=== PATIENT | female | born 1950 | race Caucasian/White ===

== ENCOUNTER 2017-06-09 12:42 | Inpatient (IN) | payer MEDICARE, MEDICAID ==
[2017-06-09 14:03] LABS: #Eosinphils 0.4 thou/uL (0.0-0.7); #Lymphocytes 1.6 thou/uL (1.20-3.40); #Monocytes 0.7 thou/uL (0.11-0.59); #Neutrophils 6.3 thou/uL (1.40-6.50); %Basophils 0.5 % (0.0-1.0); %Eosinophils 4.5 % (0.0-10.0); %Monocytes 7.9 % (0.0-10.0); %Neutrophils 69.3 % (42.0-75.0); Hemoglobin 13.2 g/dL (12.0-16.0); Mean Corpuscular HGB CONC 33.1 g/dL (32.0-36.0); Mean Corpuscular Hemoglobin 32.6 pg (27.0-31.0); Mean Corpuscular Volume 98.3 fl (81.0-99.0); Mean Platelet Volume 6.9 fL (7.4-10.4); Platelet Count 324 thou/uL (130-400); Red Blood Cell (RBC) Count 4.05 mill/uL (4.20-5.40)
[2017-06-09 14:28] LABS: ALT (SGPT) 7 U/L (8-55); AST (SGOT) 14 U/L (5-34); Albumin 3.8 g/dL (3.4-4.8); Alkaline Phosphatase 133 U/L (40-150); Anion Gap 12 mmol/L (10-20); BUN (Urea Nitrogen) 39 mg/dL (9.8-20.1); Bilirubin, Total 0.2 mg/dL (0.2-1.2); Calc. Creatinine Clearance 0 mL/min (70-130); Calcium 9.4 mg/dL (7.8-10.44); Carbon Dioxide 28 mmol/L (23-31); Chloride 101 mmol/L (98-107); Estimated GFR-MDRD 37; Globulin 3.8 g/dL (2.4-3.5); Glucose 85 mg/dL (80-115); Potassium 5.2 mmol/L (3.5-5.1); Protein, Total 7.6 g/dL (6.0-8.3); Sodium 136 mmol/L (136-145)
--- NOTE | 2017-06-09 14:40 | RAD ---
THREE VIEWS RIGHT FOOT: HISTORY: Cellulitis. COMPARISON: None. FINDINGS: There is diffuse bone demineralization. Osteomyelitis in the mid foot cannot be excluded. There is questionable irregularity involving the base of the 5th metatarsal, best appreciated on the lateral p rojection. There is no evidence of cortical destruction or periosteal reaction. There is extensive soft tissue swelling. There appears to be subcutaneous emphysema along the medial and lateral aspect of the ankle. IMPRESSION: 1. Soft tissue swelling and subcutaneous emphysema. Correlate for cellulitis. 2. Diffuse bone demineralization. Components of osteomyelitis cannot be excluded. Consider MRI. POS: [facility]
--- NOTE | 2017-06-09 16:27 | PDOC.FPRHP ---
- History of Present Illness Chief Complaint: R foot pain/swelling History of Present Illness: This is a 67 y/o F [place] resident with a PMHx of cerebral palsy and a-fib who presents for R foot pain and swelling. The patient reports that about 2 weeks ago her foot got caught in the lift and it was injured at that time. Since then she has had a lot of pain in that foot. She can't really see her foot very well , so she is unsure if it was bruised or swollen, but it felt swollen at the time. She says that she thought it was getting better, but a nurse told her that she was concerned about it and had the doctor look at it who sent her to the ED. She denies any fevers/chills. She does feel like it itches a lot. ED Course: Was evaluated in the ED and given 2L NS and 1g Vancomycin - Allergies/Adverse Reactions Allergies Allergy/AdvReac Type Severity Reaction Status Date / Time No Known Drug Allergies Allergy Verified 06/09/17 21:09 - Home Medications Medication Instructions Recorded Confirmed Type Albuterol Sulfate [Albuterol 0.63 mg NEB Q4HR PRN 06/09/17 06/09/17 History Sulfate Neb] Baclofen 10 mg PO Q6H 06/09/17 06/09/17 History DULoxetine [Cymbalta] 60 mg PO HS 06/09/17 06/09/17 History Diltiazem HCl [Cartia XT] 2 tab PO DAILY 06/09/17 06/09/17 History Furosemide 40 mg PO DAILY 06/09/17 06/09/17 History Lisinopril 20 mg PO DAILY 06/09/17 06/09/17 History Nut.sup,Spec.frm,l-Fr,Iron/Fos 1,000 ml PO TID 06/09/17 06/09/17 History [TwoCal HN Liquid] Ondansetron [Zofran ODT] 4 mg PO Q4HR PRN 06/09/17 06/09/17 History Pantoprazole Sodium [Protonix] 20 mg PO DAILY 06/09/17 06/09/17 History Sennosides/Docusate Sodium [Senna 1 each PO BID 06/09/17 06/09/17 History Plus Tablet] Warfarin Sodium [Coumadin] 2.5 mg PO DAILY 06/09/17 06/09/17 History busPIRone HCl [Buspar] 5 mg PO BID 06/09/17 06/09/17 History busPIRone HCl [Buspar] 10 mg PO HS 06/09/17 06/09/17 History oxyCODONE HCl/Acetaminophen 1 tab PO Q6H PRN 06/09/17 06/09/17 History [Oxycodone-Acetaminophen 10-325] - History PMHx: 1. Cerebral Palsy 2. a-fib 3. MDD 4. Anxiety 5. GERD PSHx: 1. Cyst removal FHx: Brother - [place] Sister - asthma Social: Lives in [facility], Smokes 4-5 cigarettes/day for the past 3 years, and smoked 1/2 ppd for the 15 years prior to that. Denies EtOH or drug use. - Review of Systems General: denies: fever/chills, weight/appetite/sleep changes Eyes: denies: eye pain, vision changes ENT: reports: rhinorrhea. denies: nasal congestion Respiratory: denies: cough, congestion, shortness of breath Cardiovascular: reports: edema. denies: chest pain, palpitation Gastrointestinal: denies: nausea, vomiting, diarrhea, constipation, abdominal pain Genitourinary: denies: dysuria, polyuria Skin: denies: rashes, lesions Musculoskeletal: reports: pain, tenderness Neurological: denies: numbness, syncope Psychological: denies: anxiety, depression - Vital signs BP: 127/61 HR: 59 RR: 18 Tmax: 98.6 Pox: 100% on RA Wt: 61.23kg - Physical Exam Constitutional: NAD, awake, alert and oriented HEENT: normocephalic and atraumatic, PERRLA, EOMI, conjunctiva clear, grossly normal vision, normal nasal mucosa, MMM, other (upper dentures in place) Neck: supple, trachea midline, no LAD Heart: RRR, normal S1/S2, no murmurs/rubs/gallops, pulses present Lungs: CTAB, no respiratory distress, good air movement, no rales/rhonchi, no wheezing Abdomen: soft, non-tender, bowel sounds present, no masses/distention Musculoskeletal: other (abnormal structure consistent with cerebral palsy, upper extremities held in flexion) Neurological: CN II-XII intact, normal sensation -Skin: 2cm ulcer on the R medial malleolus with a large surrounding area of erythema and warmth. Psychiatric: normal mood and affect, intact recent and remote memory FMR H&P: Results - Labs Result Diagrams: 06/10/17 03:27 06/10/17 03:27 Lab results: WBC 9.0 thou/uL (4.8-10.8) 06/09/17 13:59 Hgb 13.2 g/dL (12.0-16.0) 06/09/17 13:59 Hct 39.9 % (36.0-47.0) 06/09/17 13:59 MCV 98.3 fl (81.0-99.0) 06/09/17 13:59 Plt Count 324 thou/uL (130-400) 06/09/17 13:59 Neutrophils % 69.3 % (42.0-75.0) 06/09/17 13:59 ESR Westergren 39 mm/hr (Less than 30) 06/09/17 13:59 Sodium 136 mmol/L (136-145) 06/09/17 13:59 Potassium 5.2 mmol/L (3.5-5.1) H 06/09/17 13:59 Chloride 101 mmol/L (98-107) 06/09/17 13:59 Carbon Dioxide 28 mmol/L (23-31) 06/09/17 13:59 BUN 39 mg/dL (9.8-20.1) H 06/09/17 13:59 Creatinine 1.40 mg/dL (0.6-1.1) H 06/09/17 13:59 Glucose 85 mg/dL (80-115) 06/09/17 13:59 Calcium 9.4 mg/dL (7.8-10.44) 06/09/17 13:59 Total Bilirubin 0.2 mg/dL (0.2-1.2) 06/09/17 13:59 AST 14 U/L (5-34) 06/09/17 13:59 ALT 7 U/L (8-55) L 06/09/17 13:59 Alkaline Phosphatase 133 U/L (40-150) 06/09/17 13:59 C-Reactive Protein 0.53 mg/dL (= or < 0.5) H 06/09/17 13:59 Serum Total Protein 7.6 g/dL (6.0-8.3) 06/09/17 13:59 Albumin 3.8 g/dL (3.4-4.8) 06/09/17 13:59 FMR H&P: A/P - Problem List (1) Cellulitis Current Visit: Yes Status: Acute Code(s): L03.90 - CELLULITIS, UNSPECIFIED Qualifiers: Site of cellulitis: extremity Site of cellulitis of extremity: lower extremity Laterality: right Qualified Code(s): L03.115 - Cellulitis of right lower limb (2) Wound infection Current Visit: Yes Status: Acute Code(s): T14.8XXA - OTHER INJURY OF UNSPECIFIED BODY REGION, INITIAL ENCOUNTER; L08.9 - LOCAL INFECTION OF THE SKIN AND SUBCUTANEOUS TISSUE, UNSP (3) Hyperkalemia Current Visit: Yes Status: Resolved Code(s): E87.5 - HYPERKALEMIA (4) BATSHEVA (acute kidney injury) Current Visit: Yes Status: Acute Code(s): N17.9 - ACUTE KIDNEY FAILURE, UNSPECIFIED (5) Atrial fibrillation Current Visit: Yes Status: Acute Code(s): I48.91 - UNSPECIFIED ATRIAL FIBRILLATION Qualifiers: Atrial fibrillation type: unspecified Qualified Code(s): I48.91 - Unspecified atrial fibrillation (6) Depression Current Visit: Yes Status: Acute Code(s): F32.9 - MAJOR DEPRESSIVE DISORDER , SINGLE EPISODE, UNSPECIFIED Qualifiers: Depression Type: major depressive disorder Major depression recurrence: recurrent Active/Remission status: remission status unspecified Qualified Code(s): F33.9 - Major depressive disorder, recurrent, unspecified (7) GERD (gastroesophageal reflux disease) Current Visit: Yes Status: Acute Code(s): K21.9 - GASTRO-ESOPHAGEAL REFLUX DISEASE WITHOUT ESOPHAGITIS Qualifiers: Esophagitis presence: without esophagitis Qualified Code(s): K21.9 - Gastro -esophageal reflux disease without esophagitis (8) HTN (hypertension) Current Visit: Yes Status: Acute Code(s): I10 - ESSENTIAL (PRIMARY) HYPERTENSION Qualifiers: Hypertension type: essential hypertension Qualified Code(s): I10 - Essential (primary) hypertension (9) Anxiety Current Visit: Yes Status: Acute Code(s): F41.9 - ANXIETY DISORDER, UNSPECIFIED - Plan Suspected wound infection with overlying cellulitis The patient had a wound 2 weeks ago that did not heal well, likely 2/2 location and possible hematoma formation from being on coumadin. X-ray could not rule out osteo. -Vanc day 1, Zosyn day 1 -Check BCx and wound cultures, although they may be low yield as abx were given before cultures were checked -Ortho consulted, appreciate recs -MRI to rule out osteo -Hold coumadin until ortho gives recs regarding surgery -Wound care consulted Acute kidney injury vs CKD s/p 2L NS bolus by ED -NS @ 100 mL/hr -Recheck Cr in AM -Urine Na, Urine Cr to check FeNa -Hold lisinopril Hyperkalemia Mild -Monitor with BMP -Continue home lasix Atrial fibrillation -Continue Diltiazem -Hold Coumadin until ortho gives recs regarding surgery HTN -Hold lisinopril -Continue lasix Anxiety -Continue home meds Depression -Continue home meds Code status: full Diet: Heart Healthy Symptomatic meds will be provided Disposition/LOS: Admit to Medical, Length of stay likely 2 days FMR H&P: Upper Level - Pertinent history 65 year old white female with a past medical history of cerebral palsy, chronic UTI, atrial fibrillation, and HTN presents for ulcer on right ankle. It has been present for "a couple of weeks" after [place] got [place] She saw her PCP in [place] for it - reports x-ray was normal there. She denies pain but reports it is tender to touch. She denies surrounding erythema and purulent drainage but states it does bleed at times. Denies fever, chills, chest pain, dyspnea, abdominal pain, nausea, vomiting, diarrhea, dysuria, and polyuria. In the ER she was seen by ROSANA Lal and given 1 g vancomycin and 2L NS. MRI was ordered and orthopedics was consulted. - Pertinent findings Vitals: Temp 98.6 HR 62 RR 18 BP 127/61 O2 sat 95% on room air wt 61 kg Physical Exam General: NAD; awake, alert, and oriented x 4 Eyes: PERRLA, EOMI, nonicteric ENT: MMM, mucous membranes moist, no exudates CV: Regular rate and rhythm. No murmurs, rubs, or gallops. Pulses full and equal and all 4 extremities Resp: CTA-B, no WRR. Nonlabored Abd: NT, ND, no guarding/rebound Ext: No edema. Right arm held in flexion Skin: 1 cm unstageable ulcer on right medial malleolus. No surrounding erythema or drainage Neuro: No focal deficits. Right arm flexion Psych: Mood and affect appropriate. Judgement and insight intact. snf and short term recall normal. - Plan Date/Time: 06/09/175 I, Rajan Bonilla DO, have evaluated this patient and agree with findings/plan as outlined by internet project manager resident. Pertinent changes/additions are listed here. I personally evaluated the patient at approximately 1605. 67 year old white female p/w: 1) Suspected wound infection - Admit to medical floor. X-ray raised some concern for osteomyelitis. Will give iv antibiotics, check blood culture, and wound culture. Cultures may be low yield as antibiotics have already been given. Ortho consulted by ER. Consult wound care. Will hold warfarin for now as patient will need wound care and may need surgery. Will need meds for pain 2) Acute kidney injury vs CKD - Has been given iv fluids. Will trend creatinine 3) Hyperkalemia - Recheck BMP now that she has had fluids. Hold lisinopril. Resume home Lasix tomorrow 4) HTN - Hold lisinopril until potassium rechecked. Continue Lasix 5) Anxiety - Continue home meds 6) Atrial fibrillation - Continue Cardizem. Will hold warfarin as patient may need surgery and will certainly need wound care 7) Depression - Continue home meds Attending Addendum - Attending Addendum Date/Time: 06/10/17 1625 I personally evaluated the patient and discussed the management with Dr. Perez on 06/09/17. I agree with the History, Examination, Assessment and Plan documented above with any addition or exceptions noted below. Patient with cellulitis and open wound. Will workup for osteomyelitis.
[2017-06-09] MEDS ORDERED: Albuterol Sulfate 1.25 MG/3 ML NEB NEB PRN (19:38)
[2017-06-09] MEDS ORDERED: Ondansetron ODT 4 MG TAB PO PRN (19:38)
[2017-06-09] MEDS ORDERED: Ondansetron ODT 4 MG TAB SL PRN (19:41)
[2017-06-09] MEDS ORDERED: Ondansetron HCl/PF 4 MG/2 ML Vial IVP PRN (19:41)
[2017-06-09] MEDS ORDERED: Acetaminophen 325 MG TAB PO PRN (19:41)
[2017-06-09 19:55] LABS: PTT 40.1 SEC (22.9-36.1)
[2017-06-09] MEDS: Baclofen 10 MG TAB PO SCH (20:42)
[2017-06-09] MEDS: DULoxetine 60 MG CAP PO SCH (20:42)
[2017-06-09] MEDS: Senokot S 8.6-50 MG TAB PO SCH (20:43)
[2017-06-09] MEDS: HYDROcodone/Acetaminophen 10/325 mg Tablet PO PRN (20:43)
[2017-06-09] MEDS: busPIRone HCl 5 MG TAB PO SCH (20:43)
[2017-06-09] MEDS: Piperacillin/Tazobactam 3.375 GM in Sodium Chloride 0.9% 100 ML IVPB SCH (20:43)
[2017-06-09] MEDS: Sodium Chloride 0.9% 1,000 ML IV SCH (20:44)
[2017-06-10] MEDS: HYDROcodone/Acetaminophen 10/325 mg Tablet PO PRN ×5 (00:39→20:51)
[2017-06-10 02:13] LABS: Creatinine, Urine 26.54 mg/dL (47-110)
[2017-06-10] MEDS: Baclofen 10 MG TAB PO SCH ×4 (02:18→20:50)
[2017-06-10] MEDS: Piperacillin/Tazobactam 3.375 GM in Sodium Chloride 0.9% 100 ML IVPB SCH ×4 (02:35→21:28)
[2017-06-10 04:35] LABS: Prothrombin Time 23.6 SEC (12.0-14.7)
[2017-06-10 04:40] LABS: #Eosinphils 0.4 thou/uL (0.0-0.7); #Lymphocytes 2.1 thou/uL (1.20-3.40); #Monocytes 0.6 thou/uL (0.11-0.59); #Neutrophils 5.6 thou/uL (1.40-6.50); %Basophils 0.1 % (0.0-1.0); %Eosinophils 4.8 % (0.0-10.0); %Lymphocytes 23.6 % (21.0-51.0); %Monocytes 6.8 % (0.0-10.0); %Neutrophils 64.7 % (42.0-75.0); Hemoglobin 10.5 g/dL (12.0-16.0); Mean Corpuscular HGB CONC 33.7 g/dL (32.0-36.0); Mean Corpuscular Hemoglobin 32.8 pg (27.0-31.0); Mean Corpuscular Volume 97.5 fl (81.0-99.0); Mean Platelet Volume 6.7 fL (7.4-10.4); Platelet Count 273 thou/uL (130-400); RBC Distribution Width 11.9 % (11.5-14.5); Red Blood Cell (RBC) Count 3.19 mill/uL (4.20-5.40); White Blood Cell (WBC) Count 8.7 thou/uL (4.8-10.8)
[2017-06-10 04:41] LABS: Anion Gap 11 mmol/L (10-20); BUN (Urea Nitrogen) 31 mg/dL (9.8-20.1); Calc. Creatinine Clearance 53 mL/min (70-130); Calcium 8.4 mg/dL (7.8-10.44); Carbon Dioxide 24 mmol/L (23-31); Chloride 110 mmol/L (98-107); Estimated GFR-MDRD 51; Glucose 83 mg/dL (80-115); Potassium 4.5 mmol/L (3.5-5.1); Sodium 140 mmol/L (136-145)
--- NOTE | 2017-06-10 08:11 | PDOC.FM ---
- Subjective Subjective: The patient reports that she has had continued pain in her R foot, but that the pain medicine has helped some. She denies any other issues with N/V, F/C, SOB. - Objective MAR Reviewed: Yes Vital Signs & Weight: Vital Signs (12 hours) Temp Pulse Resp BP Pulse Ox 06/10/17 04:00 98.5 F 62 20 115/69 98 06/10/17 00:00 98.2 F 65 20 98/62 97 Weight Weight 67.313 kg I&O: 06/09/17 06/10/17 06/11/17 06:59 06:59 06:59 Intake Total 1000 Balance 1000 Result Diagrams: 06/10/17 03:27 06/10/17 03:27 <Samantha Perez - Last Filed: 06/10/17 10:49> - Objective Vital Signs & Weight: Vital Signs (12 hours) Temp Pulse Resp BP BP Pulse Ox 06/10/17 09:14 98.7 F 74 16 135/74 98 06/10/17 09:01 62 149/82 H 06/10/17 08:00 98.3 F 75 16 98 06/10/17 04:00 98.5 F 62 20 115/69 98 06/10/17 00:00 98.2 F 65 20 98/62 97 Weight Admit Weight 67.313 kg Weight 67.313 kg I&O: 06/09/17 06/10/17 06/11/17 06:59 06:59 06:59 Intake Total 1000 Balance 1000 Result Diagrams: 06/10/17 03:27 06/10/17 03:27 <Monty Lewis - Last Filed: 06/10/17 11:18> Phys Exam - Physical Examination Constitutional: NAD HEENT: moist MMs Respiratory: no wheezing, no rales, no rhonchi, clear to auscultation bilateral Cardiovascular: RRR, no significant murmur, no rub Gastrointestinal: soft, non-tender, no distention, positive bowel sounds Musculoskeletal: no edema, pulses present Psychiatric: normal affect, A&O x 3 Skin: normal turgor Deviation from normal: 2cm ulcer on the R medial malleolus with surrounding erythema & warmth <Samantha Perez - Last Filed: 06/10/17 10:49> Dx/Plan (1) Cellulitis Code(s): L03.90 - CELLULITIS, UNSPECIFIED Status: Acute QualifierTitle: Site of cellulitis: extremity Site of cellulitis of extremity: lower extremity Laterality: right Qualified Code(s): L03.115 - Cellulitis of right lower limb (2) Wound infection Code(s): T14.8XXA - OTHER INJURY OF UNSPECIFIED BODY REGION, INITIAL ENCOUNTER; L08.9 - LOCAL INFECTION OF THE SKIN AND SUBCUTANEOUS TISSUE, UNSP Status: Acute (3) Hyperkalemia Code(s): E87.5 - HYPERKALEMIA Status: Resolved (4) BATSHEVA (acute kidney injury) Code(s): N17.9 - ACUTE KIDNEY FAILURE, UNSPECIFIED Status: Acute (5) Atrial fibrillation Code(s): I48.91 - UNSPECIFIED ATRIAL FIBRILLATION Status: Acute QualifierTitle: Atrial fibrillation type: unspecified Qualified Code(s): I48.91 - Unspecified atrial fibrillation (6) Depression Code(s): F32.9 - MAJOR DEPRESSIVE DISORDER, SINGLE EPISODE, UNSPECIFIED Status : Acute QualifierTitle: Depression Type: major depressive disorder Major depression recurrence: recurrent Active/Remission status: remission status unspecified Qualified Code(s): F33.9 - Major depressive disorder, recurrent, unspecified (7) GERD (gastroesophageal reflux disease) Code(s): K21.9 - GASTRO-ESOPHAGEAL REFLUX DISEASE WITHOUT ESOPHAGITIS Status: Acute QualifierTitle: Esophagitis presence: without esophagitis Qualified Code( s): K21.9 - Gastro-esophageal reflux disease without esophagitis (8) HTN (hypertension) Code(s): I10 - ESSENTIAL (PRIMARY) HYPERTENSION Status: Acute QualifierTitle: Hypertension type: essential hypertension Qualified Code( s): I10 - Essential (primary) hypertension (9) Anxiety Code(s): F41.9 - ANXIETY DISORDER, UNSPECIFIED Status: Acute - Plan Plan: Suspected wound infection with overlying cellulitis The patient had a wound 2 weeks ago that did not heal well, likely 2/2 location and possible hematoma formation from being on coumadin. X-ray could not rule out osteo. -Vanc day 2, Zosyn day 2, added clindamycin -Check BCx and wound cultures, although they may be low yield as abx were given before cultures were checked -Ortho consulted, appreciate recs -MRI to rule out osteo -Hold coumadin until ortho gives recs regarding surgery -Wound care consulted Acute kidney injury vs CKD s/p 2L NS bolus by ED, unsure of patient's exact baseline -Creatinine is improved this AM to 1.06. -Hold lisinopril for now Hyperkalemia, resolved Was mildly elevated to 5.2, but has downtrended to normal. -Monitor with BMP -Continue home lasix Atrial fibrillation -Continue Diltiazem -Hold Coumadin until ortho gives recs regarding surgery HTN -Continue home lasix -Hold lisinopril for now due to BATSHEVA, BP has been WNL Anxiety -Continue home meds Depression -Continue home meds <Samantha Perez - Last Filed: 06/10/17 10:49> Attending Addendum - Attending Addendum Date/Time: 06/10/17 1117 I personally evaluated the patient and discussed the management with Dr. Perez. I agree with the History, Examination, Assessment and Plan documented above with any addition or exceptions noted below. We are adding Clindamycin to her regimen. <Monty Lewis - Last Filed: 06/10/17 11:18>
[2017-06-10] MEDS ORDERED: FLU VACC TS2017-18 (>65YR) 0.5 ML SYRINGE IM ONE (09:00)
[2017-06-10] MEDS: busPIRone HCl 5 MG TAB PO SCH ×3 (09:02→20:50)
[2017-06-10] MEDS: Senokot S 8.6-50 MG TAB PO SCH ×2 (09:02→21:28)
--- NOTE | 2017-06-10 12:19 | CON ---
DATE OF CONSULTATION: 06/10/2017 CHIEF COMPLAINT: Right foot swelling. HISTORY OF PRESENT ILLNESS: Ms. Cruz is a 67-year-old female, who has history of cerebral palsy. S he does not ambulate. She lives in a senior living. She reports that 2 weeks ago she got her right f oot caught in a lift as she was transporting. She had pain in the foot and swelling. She did not no alicia a wound at that time. Over the last several days, she has been having increasing swelling and w as noted to have erythema by her nurse. She was taken to the Emergency Department for evaluation. S he was found to have a hematoma of the posterior medial ankle with mild drainage and surrounding eryt carla suggestive of cellulitis. She was started on antibiotics last night. X-rays were obtained, jarek barrientos demonstrated diffuse osteopenia. Their report said osteomyelitis could not be ruled out. The patient is doing well this morning. She feels better, less pain, less swelling of the foot. PAST MEDICAL HISTORY: Cerebral palsy, AFib, anxiety, and GERD. PAST SURGICAL HISTORY: Cyst removal. PAST FAMILY MEDICAL HISTORY: [place] and asthma. SOCIAL HISTORY: The patient smokes several cigarettes a day. She denies alcohol or drug use. She l sophia in [facility]. PHYSICAL EXAMINATION: VITAL SIGNS: Temperature is 98.5, pulse is 62, respiratory rate 20, oxygen saturation 98%, blood pre ssure is 115/69. GENERAL: She is alert, lying supine, in no apparent distress, very thin. RESPIRATORY: Breathing comfortably. ABDOMEN: Soft, nontender, nondistended. MUSCULOSKELETAL: The patient's right foot has mild edema. There is no significant erythema. No inc reased warmth. Palpable dorsalis pedis pulse. She has a 3 x 3 cm area of swelling along the posteri or medial ankle. There is a 1 cm wound at the center of this with hematoma drainage. There is no pu rulence. Hematoma is thickened and coagulated. Minimally tender to palpation. IMAGES: X-rays of the foot demonstrate no acute fracture. No obvious evidence of a chronic infectio n suggestive of osteomyelitis. There is soft tissue swelling. IMPRESSION: A 67-year-old female with cerebral palsy, who is a nonambulator with a hematoma and drai nage from the ankle. PLAN: At this point, I think the patient can be treated with local wound care. The wound care nursi ng team has been consulted. Packing this wound would be appropriate to evacuate some of the hematoma . She will continue on antibiotics. MRI is pending to rule out underlying osteomyelitis or evidence of infection, although I think this is unlikely. We will continue to follow. If she develops worse josie infection, we could proceed with surgical drainage; however, for now, there is no indication for surgery.
[2017-06-10 12:38] VITALS: BMI 25.2
[2017-06-10] MEDS: Clindamycin/D5W 600 MG in Premix Bag 1 BAG IVPB SCH ×2 (13:54→22:47)
[2017-06-10] MEDS: Vancomycin HCl 750 MG in Sodium Chloride 0.9% 250 ML 250 ML IVPB SCH (14:02)
[2017-06-10] MEDS: Furosemide 40 MG TAB PO SCH (15:58)
--- NOTE | 2017-06-10 16:57 | MRI ---
MRI OF RIGHT FOOT PERFORMED WITHOUT CONTRAST ENHANCEMENT: 06/10/17 HISTORY: Evaluation for osteomyelitis. Patient has a history of hitting the foot approximately two weeks ago a nd development of cellulitis. This happened two weeks ago and then one week ago, patient reportedly h it the opposite side of the foot. The marrow signal change within the tibia, fibula and hindfoot region is normal. There is no evidence for osteomyelitis. Achilles tendon is normal in appearance. I do not see any signs of any tendinous abnormalities. There is a superficial T1 hypo and T2 hyperintense fluid collection which appears to represent fluid collection. It shows peripheral enhancement of the wall. It measures 3.8 cm in diameter and approxima tely 1.5 cm in width. This is compatible with a complex fluid collection. It could possibly be infect ed. No underlying deep extension. IMPRESSION: Fluid collection along the medial malleolus which could possibly be an infected superficial fluid col lection. Clinical correlation is recommended. No deep extension of this fluid collection and no evide nce of osteomyelitis. POS: [facility]
[2017-06-10] MEDS: DULoxetine 60 MG CAP PO SCH (21:28)
[2017-06-10] MEDS: Sodium Chloride 0.9% 1,000 ML IV SCH (21:48)
[2017-06-11] MEDS: Piperacillin/Tazobactam 3.375 GM in Sodium Chloride 0.9% 100 ML IVPB SCH ×4 (02:46→20:14)
[2017-06-11] MEDS: Baclofen 10 MG TAB PO SCH ×4 (02:46→20:14)
[2017-06-11] MEDS: HYDROcodone/Acetaminophen 10/325 mg Tablet PO PRN ×4 (02:51→20:12)
[2017-06-11 04:34] LABS: #Basophils 0.1 thou/uL (0.0-0.2); #Eosinphils 0.5 thou/uL (0.0-0.7); #Lymphocytes 1.5 thou/uL (1.20-3.40); #Monocytes 0.6 thou/uL (0.11-0.59); #Neutrophils 5.1 thou/uL (1.40-6.50); %Basophils 0.7 % (0.0-1.0); %Eosinophils 6.2 % (0.0-10.0); %Lymphocytes 19.8 % (21.0-51.0); %Monocytes 8.2 % (0.0-10.0); %Neutrophils 65.2 % (42.0-75.0); Mean Corpuscular HGB CONC 34.1 g/dL (32.0-36.0); Mean Corpuscular Volume 96.5 fl (81.0-99.0); Mean Platelet Volume 6.7 fL (7.4-10.4); Platelet Count 247 thou/uL (130-400); Red Blood Cell (RBC) Count 3.32 mill/uL (4.20-5.40); White Blood Cell (WBC) Count 7.7 thou/uL (4.8-10.8)
[2017-06-11 04:51] LABS: Anion Gap 12 mmol/L (10-20); BUN (Urea Nitrogen) 30 mg/dL (9.8-20.1); Calc. Creatinine Clearance 43 mL/min (70-130); Calcium 8.7 mg/dL (7.8-10.44); Carbon Dioxide 23 mmol/L (23-31); Chloride 110 mmol/L (98-107); Estimated GFR-MDRD 44; Glucose 92 mg/dL (80-115); Potassium 4.3 mmol/L (3.5-5.1); Sodium 141 mmol/L (136-145)
[2017-06-11] MEDS: Clindamycin/D5W 600 MG in Premix Bag 1 BAG IVPB SCH ×3 (06:02→21:46)
--- NOTE | 2017-06-11 06:33 | PDOC.FM ---
- Subjective Subjective: Patient states she had a good night. She is wondering when she will be able to go back to the snf. She denies chest pain, sob, n/v/d, abdominal pain, fever, or chills. No other complaints today. - Objective Vital Signs & Weight: Vital Signs (12 hours) Temp Pulse Resp BP Pulse Ox 06/10/17 20:00 98.9 F 66 16 144/83 H 100 Weight Admit Weight 67.313 kg Weight 62.686 kg I&O: 06/09/17 06/10/17 06/11/17 06:59 06:59 06:59 Intake Total 1000 840 Balance 1000 840 Result Diagrams: 06/11/17 04:13 06/11/17 04:13 <Hawk Meeks - Last Filed: 06/11/17 07:55> - Objective Vital Signs & Weight: Vital Signs (12 hours) Temp Pulse Resp BP BP Pulse Ox 06/11/17 09:06 72 134/80 06/11/17 08:02 98.6 F 72 16 134/80 98 Weight Admit Weight 67.313 kg Weight 62.686 kg I&O: 06/10/17 06/11/17 06/12/17 06:59 06:59 07:59 Intake Total 1000 1290 Balance 1000 1290 Result Diagrams: 06/11/17 04:13 06/11/17 04:13 <Monty Lewis - Last Filed: 06/11/17 11:22> Phys Exam - Physical Examination Constitutional: NAD HEENT: moist MMs Neck: no nodes Respiratory: no wheezing Cardiovascular: RRR, no significant murmur Gastrointestinal: soft, non-tender, no distention, positive bowel sounds Musculoskeletal: no edema No erythema, No lymphangitis present. Pain with palpation over wound. findings consistent with Cerebral Palsy Lymphatic: no nodes Psychiatric: normal affect, A&O x 3 Skin: no rash <Hawk Meeks - Last Filed: 06/11/17 07:55> Dx/Plan (1) Cellulitis Code(s): L03.90 - CELLULITIS, UNSPECIFIED Status: Acute QualifierTitle: Site of cellulitis: extremity Site of cellulitis of extremity: lower extremity Laterality: right Qualified Code(s): L03.115 - Cellulitis of right lower limb (2) Wound infection Code(s): T14.8XXA - OTHER INJURY OF UNSPECIFIED BODY REGION, INITIAL ENCOUNTER; L08.9 - LOCAL INFECTION OF THE SKIN AND SUBCUTANEOUS TISSUE, UNSP Status: Acute (3) BATSHEVA (acute kidney injury) Code(s): N17.9 - ACUTE KIDNEY FAILURE, UNSPECIFIED Status: Acute (4) Anxiety Code(s): F41.9 - ANXIETY DISORDER, UNSPECIFIED Status: Acute (5) Atrial fibrillation Code(s): I48.91 - UNSPECIFIED ATRIAL FIBRILLATION Status: Acute QualifierTitle: Atrial fibrillation type: unspecified Qualified Code(s): I48.91 - Unspecified atrial fibrillation (6) Depression Code(s): F32.9 - MAJOR DEPRESSIVE DISORDER, SINGLE EPISODE, UNSPECIFIED Status : Acute QualifierTitle: Depression Type: major depressive disorder Major depression recurrence: recurrent Active/Remission status: remission status unspecified Qualified Code(s): F33.9 - Major depressive disorder, recurrent, unspecified (7) GERD (gastroesophageal reflux disease) Code(s): K21.9 - GASTRO-ESOPHAGEAL REFLUX DISEASE WITHOUT ESOPHAGITIS Status: Acute QualifierTitle: Esophagitis presence: without esophagitis Qualified Code( s): K21.9 - Gastro-esophageal reflux disease without esophagitis (8) HTN (hypertension) Code(s): I10 - ESSENTIAL (PRIMARY) HYPERTENSION Status: Acute QualifierTitle: Hypertension type: essential hypertension Qualified Code( s): I10 - Essential (primary) hypertension (9) Hyperkalemia Code(s): E87.5 - HYPERKALEMIA Status: Resolved - Plan Plan: Suspected wound infection with overlying cellulitis The patient had a wound 2 weeks ago that did not heal well, likely 2/2 location and possible hematoma formation from being on coumadin. X-ray could not rule out osteo. -Vanc day 2, Zosyn day 2, added clindamycin -Vanc trough today 1330 -Ortho consulted, appreciate recs -MRI negative for osteomyelitis -Hold coumadin until ortho gives recs regarding surgery -Wound care consulted Acute kidney injury vs CKD s/p 2L NS bolus by ED, unsure of patient's exact baseline -Creatinine 1.22 this am -Continue to Hold lisinopril for now Hyperkalemia, resolved Was mildly elevated to 5.2, but has downtrended to 4.3 this am -Monitor with BMP -Continue home lasix Atrial fibrillation -Continue Diltiazem -Hold Coumadin until ortho gives recs regarding surgery -Will await status of infection before resuming Coumadin. HTN -Continue home lasix -Hold lisinopril for now due to BATSHEVA, BP has been WNL Anxiety -Continue home meds Depression -Continue home meds <Hawk Meeks - Last Filed: 06/11/17 07:55> Attending Addendum - Attending Addendum Date/Time: 06/11/17 1122 I personally evaluated the patient and discussed the management with Dr. Meeks. I agree with the History, Examination, Assessment and Plan documented above with any addition or exceptions noted below. <Monty Lewis - Last Filed: 06/11/17 11:22>
[2017-06-11] MEDS: Senokot S 8.6-50 MG TAB PO SCH ×2 (09:07→20:14)
[2017-06-11] MEDS: busPIRone HCl 5 MG TAB PO SCH ×3 (09:07→20:13)
[2017-06-11] MEDS: Furosemide 40 MG TAB PO SCH (12:38)
[2017-06-11 14:29] LABS: Vancomycin, Trough 13.1 ug/mL
[2017-06-11] MEDS: Vancomycin HCl 750 MG in Sodium Chloride 0.9% 250 ML 250 ML IVPB SCH (14:59)
[2017-06-11] MEDS: DULoxetine 60 MG CAP PO SCH (20:14)
[2017-06-12] MEDS: HYDROcodone/Acetaminophen 10/325 mg Tablet PO PRN ×2 (03:27→07:57)
[2017-06-12] MEDS: Baclofen 10 MG TAB PO SCH ×2 (03:27→07:58)
[2017-06-12] MEDS: Piperacillin/Tazobactam 3.375 GM in Sodium Chloride 0.9% 100 ML IVPB SCH ×2 (03:32→08:03)
[2017-06-12 04:59] LABS: #Eosinphils 0.8 thou/uL (0.0-0.7); #Lymphocytes 1.4 thou/uL (1.20-3.40); #Monocytes 0.6 thou/uL (0.11-0.59); #Neutrophils 5.6 thou/uL (1.40-6.50); %Basophils 0.4 % (0.0-1.0); %Eosinophils 9.8 % (0.0-10.0); %Lymphocytes 16.7 % (21.0-51.0); %Neutrophils 66.1 % (42.0-75.0); Hemoglobin 11.9 g/dL (12.0-16.0); Mean Corpuscular HGB CONC 34.2 g/dL (32.0-36.0); Mean Corpuscular Hemoglobin 32.8 pg (27.0-31.0); Mean Platelet Volume 6.9 fL (7.4-10.4); Platelet Count 270 thou/uL (130-400); RBC Distribution Width 12.1 % (11.5-14.5); Red Blood Cell (RBC) Count 3.62 mill/uL (4.20-5.40); White Blood Cell (WBC) Count 8.5 thou/uL (4.8-10.8)
[2017-06-12 05:12] LABS: Anion Gap 11 mmol/L (10-20); BUN (Urea Nitrogen) 24 mg/dL (9.8-20.1); Calc. Creatinine Clearance 46 mL/min (70-130); Calcium 9.1 mg/dL (7.8-10.44); Carbon Dioxide 25 mmol/L (23-31); Chloride 107 mmol/L (98-107); Estimated GFR-MDRD 47; Glucose 97 mg/dL (80-115); Sodium 139 mmol/L (136-145)
[2017-06-12] MEDS: Clindamycin/D5W 600 MG in Premix Bag 1 BAG IVPB SCH (05:43)
--- NOTE | 2017-06-12 06:24 | PDOC.FM ---
- Subjective Subjective: Patient had a good night. She states she doesn't have any pain out of her normal. She states she is having regular BMs and urination. She denies n/v/d, fevers, chills. No other complaints today. - Objective Vital Signs & Weight: Vital Signs (12 hours) Temp Pulse Resp BP Pulse Ox 06/11/17 20:00 98.5 F 68 20 97 06/11/17 19:34 98.5 F 68 20 122/75 98 Weight Admit Weight 67.313 kg Weight 62.686 kg I&O: 06/10/17 06/11/17 06/12/17 06:59 06:59 07:59 Intake Total 1000 1290 1979 Balance 1000 1290 1979 Result Diagrams: 06/12/17 04:13 06/12/17 04:13 <Hawk Meeks - Last Filed: 06/12/17 09:50> - Objective Vital Signs & Weight: Vital Signs (12 hours) Temp Pulse Resp BP BP Pulse Ox 06/12/17 08:02 64 137/85 06/12/17 07:15 98.1 F 64 16 137/85 96 Weight Admit Weight 67.313 kg Weight 62.686 kg I&O: 06/11/17 06/12/17 06/13/17 05:59 06:59 06:59 Intake Total Balance Result Diagrams: 06/12/17 04:13 06/12/17 04:13 <Monty Lewis - Last Filed: 06/12/17 10:02> Phys Exam - Physical Examination Constitutional: NAD HEENT: moist MMs Neck: no nodes Respiratory: no wheezing, clear to auscultation bilateral Cardiovascular: RRR, no significant murmur Gastrointestinal: soft, non-tender, no distention, positive bowel sounds Musculoskeletal: no edema, pulses present Bandage over right foot. No lymphangitis Neurological: non-focal Findings consistent with Cerebral Palsy Psychiatric: normal affect, A&O x 3 Skin: no rash <Hawk Meeks - Last Filed: 06/12/17 09:50> Dx/Plan (1) Cellulitis Code(s): L03.90 - CELLULITIS, UNSPECIFIED Status: Acute QualifierTitle: Site of cellulitis: extremity Site of cellulitis of extremity: lower extremity Laterality: right Qualified Code(s): L03.115 - Cellulitis of right lower limb (2) Wound infection Code(s): T14.8XXA - OTHER INJURY OF UNSPECIFIED BODY REGION, INITIAL ENCOUNTER; L08.9 - LOCAL INFECTION OF THE SKIN AND SUBCUTANEOUS TISSUE, UNSP Status: Acute (3) BATSHEVA (acute kidney injury) Code(s): N17.9 - ACUTE KIDNEY FAILURE, UNSPECIFIED Status: Acute (4) Anxiety Code(s): F41.9 - ANXIETY DISORDER, UNSPECIFIED Status: Acute (5) Atrial fibrillation Code(s): I48.91 - UNSPECIFIED ATRIAL FIBRILLATION Status: Acute QualifierTitle: Atrial fibrillation type: unspecified Qualified Code(s): I48.91 - Unspecified atrial fibrillation (6) Depression Code(s): F32.9 - MAJOR DEPRESSIVE DISORDER, SINGLE EPISODE, UNSPECIFIED Status : Acute QualifierTitle: Depression Type: major depressive disorder Major depression recurrence: recurrent Active/Remission status: remission status unspecified Qualified Code(s): F33.9 - Major depressive disorder, recurrent, unspecified (7) GERD (gastroesophageal reflux disease) Code(s): K21.9 - GASTRO-ESOPHAGEAL REFLUX DISEASE WITHOUT ESOPHAGITIS Status: Acute QualifierTitle: Esophagitis presence: without esophagitis Qualified Code( s): K21.9 - Gastro-esophageal reflux disease without esophagitis (8) HTN (hypertension) Code(s): I10 - ESSENTIAL (PRIMARY) HYPERTENSION Status: Acute QualifierTitle: Hypertension type: essential hypertension Qualified Code( s): I10 - Essential (primary) hypertension (9) Hyperkalemia Code(s): E87.5 - HYPERKALEMIA Status: Resolved - Plan Plan: Suspected wound infection with overlying cellulitis The patient had a wound 2 weeks ago that did not heal well, likely 2/2 location and possible hematoma formation from being on coumadin. X-ray could not rule out osteo. -Vanc day 4, Zosyn day 4, Clindamycin Day 2 -Wound culture positive for Proteus, will discharge patient with appropriate therapy. -Ortho consulted, appreciate recs -MRI negative for osteomyelitis -Will restart Coumadin on discharge -Wound care as outpatient Acute kidney injury vs CKD s/p 2L NS bolus by ED, unsure of patient's exact baseline -Creatinine 1.15 this am Hyperkalemia, resolved Was mildly elevated to 5.2, but has downtrended to 4.0 this am -Monitor with BMP -Continue home lasix Atrial fibrillation -Continue Diltiazem -Restart Coumadin HTN -Continue home lasix -Hold lisinopril for now due to BATSHEVA, BP has been WNL Anxiety -Continue home meds Depression -Continue home meds Dispostion: Stable. Patient is ready for discharge back to [facility] today. <Hawk Meeks - Last Filed: 06/12/17 09:50> Attending Addendum - Attending Addendum Date/Time: 06/12/17 1002 I personally evaluated the patient and discussed the management with Dr. Meeks. I agree with the History, Examination, Assessment and Plan documented above with any addition or exceptions noted below. <Monty Lewis - Last Filed: 06/12/17 10:02>
[2017-06-12 07:18] VITALS: BP 137/85; TEMP 98.1
[2017-06-12] MEDS: busPIRone HCl 5 MG TAB PO SCH (08:02)
[2017-06-12] MEDS: Senokot S 8.6-50 MG TAB PO SCH (08:03)
[2017-06-12] MEDS: Furosemide 40 MG TAB PO SCH (12:03)
--- NOTE | 2017-06-12 14:19 | DIS-2 ---
ADMISSION DATE: 06/09/2017 DISCHARGE DATE: 06/12/2017 RESIDENT: Dr. Hawk Meeks. ADMITTING ATTENDING: Dr. Lewis. DISCHARGE ATTENDING: Dr. Lewis. CONSULTS: With Orthopedics and Dr. Stone and with wound care. PROCEDURES: Patient underwent a foot x-ray on 06/09/2017 that showed soft tissue swelling and subcutaneous emphysema correlate for cellulitis. A diffuse bone demineralization components of osteomyelitis cannot be excluded. Consider an MRI. Next, the patient underwent a lower extremity MRI that showed a fluid collection along the medial malleolus, which could possibly be an infected superficial fluid collection. Clinical correlation is recommended. No deep extension of this fluid collection and no evidence of osteomyelitis. PRIMARY DIAGNOSES: 1. Cellulitis. 2. Wound infection. 3. Acute kidney injury. 4. Anxiety. 5. Atrial fibrillation. 6. Depression. 7. Gastroesophageal reflux disease. 8. Hypertension. 9. Hyperkalemia. DISCHARGE MEDICATIONS: 1. Albuterol sulfate nebulizer. 2. Warfarin 2.5 mg p.o. daily. 3. TwoCal HN liquid 1000 mg p.o. t.i.d. 4. Zofran 4 mg q.4 hour p.r.n. 5. Lisinopril 20 mg p.o. daily. 6. Oxycodone/acetaminophen 10/325 q.6hour p.r.n. 7. Buspirone 10 mg p.o. at bedtime. 8. Protonix 20 mg p.o. daily. 9. Duloxetine 60 mg p.o. at bedtime. 10. Diltiazem 240 mg daily. 11. Senna plus tablet b.i.d. 12. Furosemide 40 mg daily. 13. Baclofen 10 mg p.o. q.6 hour. 14. Omnicef 300 mg p.o. b.i.d. DISCONTINUED MEDICATIONS: None. HISTORY OF PRESENT ILLNESS AND HOSPITAL COURSE: This is a 67-year-old female from a care home that presents with a past medical history of cerebral palsy and atrial fibrillation, presents with right foot pain and swelling. The patient reports about 2 weeks ago, her foot got caught in a lift and it was injured at that time. Since then she has a lot of pain in that foot. She cannot really see her foot very well, so she is unsure if it bruise or swollen, but it does feel swollen. She thought it was getting better, but the nurse told her that she was concerned about and had Dr. García who sent her to the ED. She denied any fevers or chills at that time. In the ER, she was given a 1 gram dose of vancomycin and a 2 liter normal saline bolus. During this hospitalization, the patient did have blood cultures that showed no growth at 48 hours and did have a right foot wound culture that grew out Proteus mirabilis it was sensitive to Omnicef. The patient did undergo IV antibiotics for 2 days and was switched over to oral Omnicef for discharge to finish as an outpatient course. Patient had some notable lab values during this hospitalization. Potassium is high as 5.2 that trended down to 4.0 on day of discharge. She also had an INR of 2.0 and an ESR of 39. The patient was seen by Dr. Stone and Orthopedics that stated that she did not have a surgical problem at this point and recommended local wound care for care of the wound. After the findings of the lower extremity MRI revealed no osteomyelitis. Surgery was ruled out and the patient was set up for outpatient therapy with antibiotics. The patient otherwise had no other complications during this hospitalization and tolerated it well. At that time, it was decided that she will be discharged in appropriate condition. DISPOSITION: Stable. DISCHARGE INSTRUCTIONS: 1. Location: She will be discharged back to the [facility]. 2. Diet: Her diet will be a heart healthy diet. 3. Activity: Will be with orthopedic limitations because of her cerebral palsy. 4. Follow up: Will be with her primary care provider in 3 days out there in [place], [place]. We wished the patient the best of luck. Hopefully, she has no further complications from this condition. NICANOR
== END 2017-06-12 13:41 | DRG 549 ==
LOC: ERS 12:42 → T4-A 19:20
PROVIDERS: ADMIT Family Medicine; ATTEND Family Medicine
DX: M00.871 Arthritis due to other bacteria, right ankle and foot (principal); N17.9 Acute kidney failure, unspecified; I48.91 Unspecified atrial fibrillation; L03.115 Cellulitis of right lower limb; E87.5 Hyperkalemia; G80.9 Cerebral palsy, unspecified; B96.4 Proteus (mirabilis) (morganii) as the cause of diseases classified elsewhere; S90.01XA Contusion of right ankle, initial encounter; X58.XXXA Exposure to other specified factors, initial encounter; F41.9 Anxiety disorder, unspecified; F32.9 Major depressive disorder, single episode, unspecified; K21.0 Gastro-esophageal reflux disease with esophagitis; I10 Essential (primary) hypertension; F17.210 Nicotine dependence, cigarettes, uncomplicated
CPT/HCPCS: 36415; 80048; 80053; 80202; 82570; 84300; 84540; 85025; 85610; 85652; 85730; 86140; 87040; 87070; 87077; 87186; 87205; 90471; 90682; 96361; 96365; A4216; G0008; J2543; J3370; J3490; J7050; Q2036

== ENCOUNTER 2017-06-15 08:46 | Inpatient (IN) | payer MEDICARE, MEDICAID ==
[2017-06-15 09:18] LABS: #Eosinphils 0.5 thou/uL (0.0-0.7); #Lymphocytes 1.6 thou/uL (1.20-3.40); #Monocytes 0.8 thou/uL (0.11-0.59); #Neutrophils 8.5 thou/uL (1.40-6.50); %Basophils 0.3 % (0.0-1.0); %Eosinophils 4.8 % (0.0-10.0); %Lymphocytes 13.7 % (21.0-51.0); %Monocytes 7.2 % (0.0-10.0); %Neutrophils 74.1 % (42.0-75.0); Hemoglobin 13.5 g/dL (12.0-16.0); Mean Corpuscular HGB CONC 32.8 g/dL (32.0-36.0); Mean Corpuscular Hemoglobin 32.3 pg (27.0-31.0); Mean Corpuscular Volume 98.4 fl (81.0-99.0); Mean Platelet Volume 7.3 fL (7.4-10.4); Platelet Count 268 thou/uL (130-400); RBC Distribution Width 12.8 % (11.5-14.5); Red Blood Cell (RBC) Count 4.17 mill/uL (4.20-5.40); White Blood Cell (WBC) Count 11.5 thou/uL (4.8-10.8)
--- NOTE | 2017-06-15 09:29 | RAD ---
CHEST 1 VIEW: Date: 06/15/17 HISTORY: Chest pain. COMPARISON: 03/13/16. FINDINGS: Normal cardiac silhouette. Pulmonary vessels and hilum are normal. Costophrenic angles are clear. Chr onic changes. No consolidation or mass. No pneumothorax or osseous abnormalities. IMPRESSION: No acute cardiopulmonary process. POS: [facility]
[2017-06-15 09:31] LABS: CK (CPK) 123 U/L (29-168); Lipase 24 U/L (8-78)
[2017-06-15 09:43] LABS: CKMB 3.9 ng/mL (0-6.6); Troponin I Less than 0.010 ng/mL (< 0.028)
[2017-06-15 09:53] LABS: ALT (SGPT) 11 U/L (8-55); AST (SGOT) 15 U/L (5-34); Alkaline Phosphatase 129 U/L (40-150); Anion Gap 20 mmol/L (10-20); BUN (Urea Nitrogen) 42 mg/dL (9.8-20.1); Bilirubin, Total 0.2 mg/dL (0.2-1.2); Calc. Creatinine Clearance 0 mL/min (70-130); Calcium 9.5 mg/dL (7.8-10.44); Carbon Dioxide 19 mmol/L (23-31); Chloride 98 mmol/L (98-107); Estimated GFR-MDRD 15; Globulin 3.7 g/dL (2.4-3.5); Glucose 91 mg/dL (80-115); Potassium 4.1 mmol/L (3.5-5.1); Protein, Total 7.7 g/dL (6.0-8.3); Sodium 133 mmol/L (136-145)
[2017-06-15] MEDS ORDERED: Morphine 4 MG/ML VIAL ONE (10:18)
--- NOTE | 2017-06-15 10:33 | PDOC.FPRHP ---
- History of Present Illness Chief Complaint: Chest Pain History of Present Illness: 67 yo female presents with 1 day history of chest pressure. She notes that she has had chest pressure and restlessness since last night. She states she has not had any radiation to the pain. She denies any sharp pains, but notes it to be more of a pressure. She has had some associated nausea during this time, but no vomiting or diarrhea. She denies any focal weakness. 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 No other complaints today. ED Course: Morphine 4mg - Allergies/Adverse Reactions Allergies Allergy/AdvReac Type Severity Reaction Status Date / Time No Known Drug Allergies Allergy Verified 06/09/17 21:09 - Home Medications Medication Instructions Recorded Confirmed Type DULoxetine [Cymbalta] 60 mg PO HS 06/09/17 06/15/17 History Furosemide 40 mg PO DAILY 06/09/17 06/15/17 History Lisinopril 20 mg PO DAILY 06/09/17 06/15/17 History Nut.sup,Spec.frm,l-Fr,Iron/Fos 60 ml PO TID 06/09/17 06/15/17 History [TwoCal HN Liquid] Ondansetron [Zofran ODT] 4 mg PO Q4HR PRN 06/09/17 06/15/17 History Pantoprazole Sodium [Protonix] 20 mg PO DAILY 06/09/17 06/15/17 History Sennosides/Docusate Sodium [Senna 1 each PO BID 06/09/17 06/15/17 History Plus Tablet] busPIRone HCl [Buspar] 5 mg PO BID 06/09/17 06/15/17 History busPIRone HCl [Buspar] 10 mg PO HS 06/09/17 06/15/17 History oxyCODONE HCl/Acetaminophen 1 tab PO Q6H PRN 06/09/17 06/15/17 History [Oxycodone-Acetaminophen 10-325] - History PMHx: 1. Cerebral Palsy 2. a-fib 3. MDD 4. Anxiety 5. GERD PSHx: 1. Cyst removal FHx: Brother - [place] Sister - asthma Social: Lives in [facility], Smokes 4-5 cigarettes/day for the past 3 years, and smoked 1/2 ppd for the 15 years prior to that. Denies EtOH or drug use. - Review of Systems General: denies: fever/chills, weight/appetite/sleep changes Eyes: denies: eye pain ENT: denies: nasal congestion, rhinorrhea Respiratory: denies: cough, congestion, shortness of breath Cardiovascular: reports: chest pain. denies: palpitation Gastrointestinal: denies: nausea, vomiting, diarrhea, constipation Genitourinary: denies: incontinence Skin: denies: rashes, lesions Musculoskeletal: denies: pain, tenderness Neurological: denies: numbness, syncope Psychological: denies: anxiety, depression - Vital signs BP: [113/57] HR: [82] RR: [12] Tmax: [98.2] Pox: [98]% on [Rm Air] Wt: [62 kg ] - Physical Exam Constitutional: NAD, awake, alert and oriented HEENT: PERRLA, grossly normal vision, grossly normal hearing, normal nasal mucosa Neck: supple, trachea midline Chest: no-tender to palpation Heart: RRR, normal S1/S2, no murmurs/rubs/gallops Lungs: CTAB, no wheezing Abdomen: soft, non-tender, bowel sounds present, no masses/distention -Musculoskeletal: Deficits consistent with Paraplegia and Cerebral Palsy Skin: no rash/lesions Heme/Lymphatic: no unusual bruising or bleeding Psychiatric: normal mood and affect, good judgment and insight, intact recent and remote memory FMR H&P: Results - Labs Result Diagrams: 06/15/17 09:06 06/15/17 08:57 Lab results: WBC 11.5 thou/uL (4.8-10.8) H 06/15/17 09:06 Hgb 13.5 g/dL (12.0-16.0) 06/15/17 09:06 Hct 41.0 % (36.0-47.0) 06/15/17 09:06 MCV 98.4 fl (81.0-99.0) 06/15/17 09:06 Plt Count 268 thou/uL (130-400) 06/15/17 09:06 Neutrophils % 74.1 % (42.0-75.0) 06/15/17 09:06 Sodium 133 mmol/L (136-145) L 06/15/17 08:57 Potassium 4.1 mmol/L (3.5-5.1) 06/15/17 08:57 Chloride 98 mmol/L (98-107) 06/15/17 08:57 Carbon Dioxide 19 mmol/L (23-31) L 06/15/17 08:57 BUN 42 mg/dL (9.8-20.1) H 06/15/17 08:57 Creatinine 3.08 mg/dL (0.6-1.1) H 06/15/17 08:57 Glucose 91 mg/dL (80-115) 06/15/17 08:57 Calcium 9.5 mg/dL (7.8-10.44) 06/15/17 08:57 Total Bilirubin 0.2 mg/dL (0.2-1.2) 06/15/17 08:57 AST 15 U/L (5-34) 06/15/17 08:57 ALT 11 U/L (8-55) 06/15/17 08:57 Alkaline Phosphatase 129 U/L (40-150) 06/15/17 08:57 Creatine Kinase 123 U/L (29-168) 06/15/17 09:06 CK-MB (CK-2) 3.9 ng/mL (0-6.6) 06/15/17 09:06 B-Natriuretic Peptide 17.1 pg/mL (0-100) 06/15/17 09:06 Serum Total Protein 7.7 g/dL (6.0-8.3) 06/15/17 08:57 Albumin 4.0 g/dL (3.4-4.8) 06/15/17 08:57 Lipase 24 U/L (8-78) 06/15/17 09:06 - EKG Interpretation EK lead EKG shows normal sinus rhythm, Rate (beats per minute): 76, with no ectopics, Conduction normal, ST segments normal, T waves normal, [place] normal, Other findings include:, increased R/S ration in V1 consider early transition or posterior infarct, Clinical impression:, non-specific EKG, MD interval 126 ms , QRS duration 64 ms, QT/QTc 376/423 ms. FMR H&P: A/P - Problem List (1) Atypical chest pain Current Visit: Yes Status: Acute Code(s): R07.89 - OTHER CHEST PAIN (2) BATSHEVA (acute kidney injury) Current Visit: No Status: Acute Code(s): N17.9 - ACUTE KIDNEY FAILURE, UNSPECIFIED (3) Anxiety Current Visit: No Status: Acute Code(s): F41.9 - ANXIETY DISORDER, UNSPECIFIED (4) Atrial fibrillation Current Visit: No Status: Acute Code(s): I48.91 - UNSPECIFIED ATRIAL FIBRILLATION Qualifiers: Atrial fibrillation type: unspecified Qualified Code(s): I48.91 - Unspecified atrial fibrillation (5) Depression Current Visit: No Status: Acute Code(s): F32.9 - MAJOR DEPRESSIVE DISORDER, SINGLE EPISODE, UNSPECIFIED Qualifiers: Depression Type: major depressive disorder Major depression recurrence: recurrent Active/Remission status: remission status unspecified Qualified Code(s): F33.9 - Major depressive disorder, recurrent, unspecified (6) HTN (hypertension) Current Visit: No Status: Acute Code(s): I10 - ESSENTIAL (PRIMARY) HYPERTENSION Qualifiers: Hypertension type: essential hypertension Qualified Code(s): I10 - Essential (primary) hypertension (7) Wound infection Current Visit: No Status: Acute Code(s): T14.8XXA - OTHER INJURY OF UNSPECIFIED BODY REGION, INITIAL ENCOUNTER; L08.9 - LOCAL INFECTION OF THE SKIN AND SUBCUTANEOUS TISSUE, UNSP (8) Cerebral palsy Current Visit: Yes Status: Acute Code(s): G80.9 - CEREBRAL PALSY, UNSPECIFIED - Plan 1. Atypical Chest Pain - Trend troponins - Mg, Phos, TSH - Tele admit - Stress test in AM 2. BATSHEVA - Cr to 3.08 - Last hospitalization Cr. ranged from 1.0-1.6 - IVF - Avoid nephrotoxic drugs - D/C Lisinopril and Lasix at this time. 3. Wound Infection - Continue Omnicef from previous hospitalization - Will consult wound care for treatment 4. Anxiety/Depression - Continue home meds 5. HTN - Continue home meds - Discontinue Lisinopril with BATSHEVA 6. A-fib - Tele monitoring - Continue home meds - Monitor INR 7. Cerebral Palsy - Continue routine care - Will need help with ADLs CODE STATUS: FULL CODE Disposition: Stable, will admit to tele. FMR H&P: Upper Level - Plan Date/Time: 06/15/17 1031 Ulisses Barajas, have evaluated this patient and agree with findings/plan as outlined by marketing pr intern resident. Pertinent changes/additions are listed here. 1 Chest pain: Atypical. Troponins negative, trend x3. Currently resolved in ED. Possibly msk related. Continue to monitor 2 BATSHEVA: Likely prerenal, start IVF and continue to monitor. Baseline Cr ~1.6 3 Restlessness: Unknown cause, consider adding medication if patient cannot sleep. 4 Cerebral palsy: with hx/o spinal cord injury. Bed-bound with severe scoliosis and poor posturing that causes pain. 5 R Foot ulcer with infection: Day 4 of Omnicef- continue. Attending Addendum - Attending Addendum Date/Time: 06/15/17 7756 I personally evaluated the patient and discussed the management with Dr. Meeks I agree with the History, Examination, Assessment and Plan documented above with any addition or exceptions noted below.right ankle medial malleolar with healing wound continue existing treatment plan.
[2017-06-15] MEDS ORDERED: Ondansetron ODT 4 MG TAB SL PRN (11:59)
[2017-06-15] MEDS ORDERED: Sodium Chloride 0.9% 1,000 ML IV SCH ×2 (11:59→12:30)
[2017-06-15] MEDS ORDERED: Ondansetron HCl/PF 4 MG/2 ML Vial IVP PRN (11:59)
[2017-06-15 13:01] LABS: Troponin I Less than 0.010 ng/mL (< 0.028)
[2017-06-15 13:20] VITALS: BMI 25.9
[2017-06-15] MEDS ORDERED: Ondansetron ODT 4 MG TAB PO PRN ×2 (13:33→13:39)
[2017-06-15] MEDS ORDERED: Acetaminophen 325 MG TAB PO PRN (13:33)
[2017-06-15] MEDS ORDERED: Non-Formulary Item 1 EACH (Albuterol Sulfate [Albuterol Sulfate Neb] 0.63 MG) NEB PRN (13:39)
[2017-06-15] MEDS ORDERED: Non-Formulary Item 1 EACH (Oxycodone Hcl/Acetaminophen [Oxycodone-Acetaminophen 10-325] 1 PO PRN (13:39)
[2017-06-15] MEDS ORDERED: Albuterol Sulfate 1.25 MG/3 ML NEB NEB PRN (13:55)
[2017-06-15 14:32] LABS: INR-International Normal Ratio 1.9; PTT 37.7 SEC (22.9-36.1); Prothrombin Time 22.6 SEC (12.0-14.7)
[2017-06-15] MEDS ORDERED: [UNRECOGNIZED DRUG - OTHER] PO SCH (15:00)
[2017-06-15 15:30] LABS: Magnesium 2.4 mg/dL (1.6-2.6)
[2017-06-15 15:37] LABS: Troponin I 0.018 ng/mL (< 0.028)
[2017-06-15] MEDS: Sodium Chloride 0.9% 1,000 ML IV SCH ×2 (15:49→22:25)
[2017-06-15] MEDS: Baclofen 10 MG TAB PO SCH ×3 (16:02→22:25)
[2017-06-15] MEDS: busPIRone HCl 5 MG TAB PO SCH (16:03)
[2017-06-15] MEDS: oxyCODONE/Acetaminophen 5 mg/325 mg Tablet PO PRN ×2 (16:03→23:03)
[2017-06-15] MEDS ORDERED: busPIRone HCl 5 MG TAB PO SCH (20:00)
[2017-06-15 20:27] LABS: Troponin I Less than 0.010 ng/mL (< 0.028)
[2017-06-15] MEDS ORDERED: Senokot S 8.6-50 MG TAB PO SCH (21:00)
[2017-06-15] MEDS ORDERED: DULoxetine 60 MG CAP PO SCH (21:00)
[2017-06-15] MEDS: Cefdinir 300 MG CAP PO SCH (21:37)
[2017-06-15] MEDS: Senokot S 8.6-50 MG TAB PO SCH (21:39)
[2017-06-16] MEDS: Baclofen 10 MG TAB PO SCH ×2 (04:59→10:53)
[2017-06-16] MEDS: oxyCODONE/Acetaminophen 5 mg/325 mg Tablet PO PRN (04:59)
[2017-06-16] MEDS: Sodium Chloride 0.9% 1,000 ML IV SCH (05:29)
[2017-06-16 05:46] LABS: Anion Gap 12 mmol/L (10-20); BUN (Urea Nitrogen) 37 mg/dL (9.8-20.1); Calc. Creatinine Clearance 26 mL/min (70-130); Calcium 8.4 mg/dL (7.8-10.44); Carbon Dioxide 20 mmol/L (23-31); Cardiac Risk 4.3 (Less than 4.5); Chloride 106 mmol/L (98-107); Cholesterol 137 mg/dl (< 200 Desired); Estimated GFR-MDRD 25; Glucose 68 mg/dL (80-115); HDL Cholesterol 32 mg/dL (>60 Neg Risk); LDL Cholesterol, Calculated 74 mg/dL; Phosphorus 4.8 mg/dL (2.3-4.7); Potassium 4.4 mmol/L (3.5-5.1); Sodium 134 mmol/L (136-145); Triglycerides 154 mg/dL (Less than 150)
--- NOTE | 2017-06-16 06:28 | PDOC.FM ---
- Subjective Subjective: Patient states restlessness improved. She was counseled on the inability to complete the stress test and she is in agreement with this plan. She notes that she slept well. She denies n/v/d, fevers, chills, or cough. She has had no more chest pain or sob. No other complaints this morning. - Objective Vital Signs & Weight: Vital Signs (12 hours) Temp Pulse Resp BP Pulse Ox 06/16/17 05:29 95 06/16/17 04:31 97.9 F 74 20 123/60 99 06/16/17 03:51 97.2 F L 74 18 130/62 97 06/15/17 20:00 98 F 85 18 Weight Admit Weight 62.142 kg Weight 62.142 kg I&O: 06/14/17 06/15/17 06/16/17 06:59 06:59 06:59 Intake Total 1650 Balance 1650 Result Diagrams: 06/15/17 09:06 06/16/17 04:08 <Hawk Meeks - Last Filed: 06/16/17 08:40> - Objective Vital Signs & Weight: Vital Signs (12 hours) Temp Pulse Resp BP Pulse Ox 06/16/17 08:22 98.2 F 73 16 136/72 100 06/16/17 08:00 98.2 F 73 16 06/16/17 05:29 95 06/16/17 04:31 97.9 F 74 20 123/60 99 06/16/17 03:51 97.2 F L 74 18 130/62 97 Weight Admit Weight 62.142 kg Weight 62.142 kg I&O: 06/15/17 06/16/17 06/17/17 06:59 06:59 06:59 Intake Total 1650 Balance 1650 Result Diagrams: 06/15/17 09:06 06/16/17 04:08 <Tejinder Arnett - Last Filed: 06/16/17 11:41> Phys Exam - Physical Examination HEENT: moist MMs Neck: no nodes Respiratory: no wheezing, clear to auscultation bilateral Cardiovascular: RRR, no significant murmur Gastrointestinal: soft, non-tender, no distention, positive bowel sounds Residual deficits consistent with cerebral palsy Psychiatric: normal affect, A&O x 3 Skin: no rash <Jeanna,Hawk - Last Filed: 06/16/17 08:40> Dx/Plan (1) Atypical chest pain Code(s): R07.89 - OTHER CHEST PAIN Status: Acute (2) BATSHEVA (acute kidney injury) Code(s): N17.9 - ACUTE KIDNEY FAILURE, UNSPECIFIED Status: Acute (3) Anxiety Code(s): F41.9 - ANXIETY DISORDER, UNSPECIFIED Status: Acute (4) Atrial fibrillation Code(s): I48.91 - UNSPECIFIED ATRIAL FIBRILLATION Status: Acute QualifierTitle: Atrial fibrillation type: unspecified Qualified Code(s): I48.91 - Unspecified atrial fibrillation (5) Depression Code(s): F32.9 - MAJOR DEPRESSIVE DISORDER, SINGLE EPISODE, UNSPECIFIED Status : Acute QualifierTitle: Depression Type: major depressive disorder Major depression recurrence: recurrent Active/Remission status: remission status unspecified Qualified Code(s): F33.9 - Major depressive disorder, recurrent, unspecified (6) HTN (hypertension) Code(s): I10 - ESSENTIAL (PRIMARY) HYPERTENSION Status: Acute QualifierTitle: Hypertension type: essential hypertension Qualified Code( s): I10 - Essential (primary) hypertension (7) Wound infection Code(s): T14.8XXA - OTHER INJURY OF UNSPECIFIED BODY REGION, INITIAL ENCOUNTER; L08.9 - LOCAL INFECTION OF THE SKIN AND SUBCUTANEOUS TISSUE, UNSP Status: Acute (8) Cerebral palsy Code(s): G80.9 - CEREBRAL PALSY, UNSPECIFIED Status: Acute - Plan Plan: 1. Atypical Chest Pain - Trended troponins and negative - Tele admit - Patient unable to undergo stress test because not able to tolerate positioning and upper extremity contractures. 2. BATSHEVA - Cr improved to 1.97 - Last hospitalization Cr. ranged from 1.0-1.6 - Continue IVF - Avoid nephrotoxic drugs - D/C Lisinopril and Lasix at this time. 3. Wound Infection - Continue Omnicef from previous hospitalization - Will consult wound care for treatment 4. Anxiety/Depression - Continue home meds 5. HTN - Continue home meds - Discontinue Lisinopril with BATSHEVA 6. A-fib - Tele monitoring - Continue home meds - INR 1.9 7. Cerebral Palsy - Continue routine care - Will need help with ADLs CODE STATUS: FULL CODE Disposition: Stable, will admit to tele. Patient will need to have follow up with PCP regarding kidney function. Should be stable for discharge today. <Hawk Meeks - Last Filed: 06/16/17 08:40> (1) Atypical chest pain Code(s): R07.89 - OTHER CHEST PAIN Status: Acute (2) BATSHEVA (acute kidney injury) Code(s): N17.9 - ACUTE KIDNEY FAILURE, UNSPECIFIED Status: Acute (3) Anxiety Code(s): F41.9 - ANXIETY DISORDER, UNSPECIFIED Status: Acute (4) Atrial fibrillation Code(s): I48.91 - UNSPECIFIED ATRIAL FIBRILLATION Status: Acute Qualifiers: Atrial fibrillation type: unspecified Qualified Code(s): I48.91 - Unspecified atrial fibrillation (5) Depression Code(s): F32.9 - MAJOR DEPRESSIVE DISORDER, SINGLE EPISODE, UNSPECIFIED Status : Acute Qualifiers: Depression Type: major depressive disorder Major depression recurrence: recurrent Active/Remission status: remission status unspecified Qualified Code(s): F33.9 - Major depressive disorder, recurrent, unspecified (6) HTN (hypertension) Code(s): I10 - ESSENTIAL (PRIMARY) HYPERTENSION Status: Acute Qualifiers: Hypertension type: essential hypertension Qualified Code(s): I10 - Essential (primary) hypertension (7) Wound infection Code(s): T14.8XXA - OTHER INJURY OF UNSPECIFIED BODY REGION, INITIAL ENCOUNTER; L08.9 - LOCAL INFECTION OF THE SKIN AND SUBCUTANEOUS TISSUE, UNSP Status: Acute (8) Cerebral palsy Code(s): G80.9 - CEREBRAL PALSY, UNSPECIFIED Status: Acute <Tejinder Arnett - Last Filed: 06/16/17 11:41> Attending Addendum - Attending Addendum Date/Time: 06/16/17 [id number] I personally evaluated the patient and discussed the management with Dr. Meeks I agree with the History, Examination, Assessment and Plan documented above with any addition or exceptions noted below. Patient reaching maximum inpatient benefit: troponins negative not able to proceed with stress testing secondary to body habitus low probabilty to necessitate pursue further aggresive w/u , check T4, continue hydration and should be near baseline RFT near this afternoon ,and stable for discharge and further outpatient monitoring. <Tejinder Arnett - Last Filed: 06/16/17 11:41>
[2017-06-16 08:23] VITALS: TEMP 98.2
[2017-06-16] MEDS ORDERED: Pantoprazole 40 MG GRANULES PACKET PO SCH (09:00)
[2017-06-16] MEDS: Senokot S 8.6-50 MG TAB PO SCH (09:00)
[2017-06-16] MEDS ORDERED: Non-Formulary Item 1 EACH (Pantoprazole Sodium [Protonix] 20 MG) PO SCH (09:00)
[2017-06-16] MEDS ORDERED: Warfarin Sodium 2.5 MG TAB PO SCH ×2 (09:00→17:00)
[2017-06-16] MEDS: busPIRone HCl 5 MG TAB PO SCH (10:53)
[2017-06-16] MEDS: Cefdinir 300 MG CAP PO SCH (10:53)
[2017-06-16 14:28] VITALS: BP 124/60
--- NOTE | 2017-06-16 18:43 | DIS-2 ---
DATE OF ADMISSION: 06/15/2017 DATE OF DISCHARGE: 06/16/2017 RESIDENT: Dr. Meeks. ADMITTING ATTENDING: Dr. Arnett. DISCHARGE ATTENDING: Dr. Arnett. CONSULTATIONS: None. PROCEDURES: The patient underwent a chest x-ray on 06/15/2017 that showed no acute cardiopulmonary process. PRIMARY DIAGNOSES: 1. Atypical chest pain. 2. Acute kidney injury. 3. Anxiety. 4. Atrial fibrillation. 5. Depression. 6. Hypertension. 7. Wound infection. 8. Cerebral palsy. DISCHARGE MEDICATIONS: 1. TwoCal HN liquid 60 mL p.o. t.i.d. 2. Zofran 4 mg p.o. q.4 hours p.r.n. 3. Oxycodone/acetaminophen 10/325 one tab q.6 hours p.r.n. 4. Buspirone 10 mg p.o. at bedtime. 5. Protonix 20 mg p.o. daily. 6. Duloxetine 60 mg p.o. at bedtime. 7. Buspirone 5 mg p.o. b.i.d. 8. Senna plus tablet p.o. b.i.d. 9. Albuterol sulfate 0.63 mg nebulizers q.4 hours p.r.n. 10. Baclofen 10 mg q.6 hours as needed. 11. Cefdinir 300 mg p.o. b.i.d. 12. Diltiazem 240 mg p.o. daily. 13. Warfarin 2.5 mg p.o. daily. DISCONTINUED MEDICATIONS: 1. Furosemide 40 mg daily. 2. Lisinopril 20 mg daily. HISTORY OF PRESENT ILLNESS AND HOSPITAL COURSE: A 67-year-old female who presents with a 1-day history of chest pressure. She notes that she had chest pressure developed since last night. She states she has not had any radiation of the pain. She denies any sharp pains, but noted seem to be more of a pressure. She has had some associated nausea during this time, but no vomiting or diarrhea. She denies any focal weakness. 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 No other complaints today. She did state several times that her symptoms were more of restlessness more than chest pain, but she was brought to the ER for evaluation. During this hospitalization, the patient had some notable lab values of a creatinine that was 3.08 and trended down to 1.97 on day of discharge, the patient's creatinine at hospitalization one week ago had a baseline of around 1- 1.6. The patient also had a TSH that showed 0.3291 that was mildly suppressed and would recommend outpatient follow up for that. Being she is on Coumadin, the patient's INR was measured and was found to be 1.9, which is subtherapeutic out of the 2-3 range; however, this would be appropriate to have her PCP manage that as an outpatient. The patient was then evaluated for atypical chest pain, was not able to undergo the cardiac stress test because she was not able to tolerate positioning and also the contractures from her condition would not allow for appropriate imaging of the chest area. Otherwise, the patient was restarted on her home medications and did not have as much restlessness as was stated previously. Patient's vital signs were she was afebrile during this entire hospitalization. Her blood pressure was within normal limits. She was not tachycardic and was not tachypneic. The patient was advised that she needs to do as best she can to staying hydrated when she goes home as her kidney function has declined over the past year and it was also decided that she needed to be stopped on her lisinopril and her furosemide at this time. Her primary care provider can reevaluate her kidney function test in the future and determine if she needs to restart any of those medications. Otherwise, the patient had no other further complications in this hospitalization and was discharged in appropriate condition. DISPOSITION: Stable. DISCHARGE INSTRUCTIONS: 1. Location: She will be discharged to [facility]. 2. Diet, will be a heart healthy diet. 3. Activity will be with orthopedic limitations, because of her contractures. 4. Follow up will be with her primary care provider in 3 days as she establishes back at the alf. NICANOR
--- NOTE | 2017-07-07 15:00 | EKG ---
Test Reason : DIAGNOSING PURPOSES Blood Pressure : / mmHG Vent. Rate : 076 BPM Atrial Rate : 076 BPM P-R Int : 126 ms QRS Dur : 064 ms QT Int : 376 ms P-R-T Axes : 071 057 049 degrees QTc Int : 423 ms Normal sinus rhythm Increased R/S ratio in V1, consider early transition or posterior infarct Abnormal ECG Confirmed by LUCIE FRANCOIS ([id number]), photograph editor LAYLA DALLAS ([id number]) on 07/07/2017 3:00:05 PM Referred By: Confirmed By:LUCIE FRANCOIS
== END 2017-06-16 14:35 | DRG 683 ==
LOC: ERS 08:46 → 2NO 12:06
PROVIDERS: ADMIT Family Medicine; ATTEND Family Medicine
DX: N17.9 Acute kidney failure, unspecified (principal); G82.20 Paraplegia, unspecified; I48.91 Unspecified atrial fibrillation; L97.519 Non-pressure chronic ulcer of other part of right foot with unspecified severity; M41.9 Scoliosis, unspecified; S14.109S Unspecified injury at unspecified level of cervical spinal cord, sequela; G80.9 Cerebral palsy, unspecified; F17.210 Nicotine dependence, cigarettes, uncomplicated; F32.9 Major depressive disorder, single episode, unspecified; F41.9 Anxiety disorder, unspecified; I10 Essential (primary) hypertension; L08.9 Local infection of the skin and subcutaneous tissue, unspecified; R07.89 Other chest pain; Z74.01 Bed confinement status
CPT/HCPCS: 36415; 71045; 80048; 80053; 80061; 82550; 82553; 83690; 83735; 83880; 84100; 84439; 84443; 84484; 85025; 85610; 85730; 93005; 94760; 96374; A4216; J2270